=== PATIENT | female | born 1985 | race African-American/Black ===

== ENCOUNTER 2024-05-10 11:03 | Emergency (ER) | payer BC ==
[~2024-05-10] VITALS: Ht 160 cm; Wt 199.6 kg
[2024-05-10 11:11] VITALS: PULSE 86; RESP 20; TEMP 97.6; O2SAT 99
[2024-05-10] MEDS: SODIUM CHLORIDE 0.9% 1000ML 1,000 ML IV ONE (11:40)
[2024-05-10 11:43] LABS: BASOPHILS % 0.2 % (0.0-1.0); EOSINOPHILS # (AUTO) 0.1 (0.0-0.4); EOSINOPHILS % 1.1 % (0.0-6.0); HEMATOCRIT 40.4 % (34.2-44.1); HEMOGLOBIN 12.4 g/dL (12.0-16.0); LYMPHOCYTES # (AUTO) 2.8 (1.0-3.2); LYMPHOCYTES % 50.4 % (18.0-39.1); MEAN CORPUSCULAR HEMOGLOBIN 25.5 pg (28-32); MEAN CORPUSCULAR HGB CONC 30.7 g/dL (31-35); MONOCYTES # (AUTO) 0.4 (0.2-0.8); MONOCYTES % 6.6 % (4.4-11.3); NEUTROPHILS # (AUTO) 2.3 (2.1-6.9); NEUTROPHILS % 41.3 % (38.7-80.0); PLATELET COUNT 281 x10e3/uL (140-360); RED BLOOD COUNT 4.87 x10e6/uL (3.6-5.1); RED CELL DISTRIBUTION WIDTH 15.6 % (11.7-14.4); WHITE BLOOD COUNT 5.58 x10e3/uL (4.8-10.8)
[2024-05-10 11:57] LABS: ANION GAP 15.1 mmol/L (8-16); CALCIUM 8.8 mg/dL (8.4-10.2); CREATININE, SERUM 0.73 mg/dL (0.57-1.11); POTASSIUM 5.1 mmol/L (3.5-5.1)
[2024-05-10] MEDS: KETOROLAC TROMETHAMINE 30 MG/ML VIAL IV STA (12:03)
[2024-05-10] MEDS ORDERED: KETOROLAC TROME10 MG PO (12:28)
== END 2024-05-10 12:37 | disposition home or self-care (01) ==
LOC: ER 11:11
DX: E86.0 Dehydration (principal); S80.211A Abrasion, right knee, initial encounter; R51.9 Headache, unspecified; I10 Essential (primary) hypertension; E11.9 Type 2 diabetes mellitus without complications; W19.XXXA Unspecified fall, initial encounter; Z88.8 Allergy status to other drugs, medicaments and biological substances
CPT/HCPCS: 36415; 73560; 80048; 81025; 85025; 99283; J1885; J7030

== ENCOUNTER 2025-03-09 18:45 | Emergency (ER) | payer OTHER ==
[~2025-03-09] VITALS: Ht 160 cm; Wt 200.5 kg
[~2025-03-09 18:45] MED LIST: KETOROLAC TROME10 MG PO
[2025-03-09 19:05] VITALS: PULSE 95; RESP 20; TEMP 97.5
[2025-03-09] MEDS ORDERED: LOSARTAN POTASS25 MG PO (19:10)
[2025-03-09] MEDS ORDERED: TYLENOL325 MG PO (19:10)
[2025-03-09] MEDS: KETOROLAC TROMETHAMINE 30 MG/ML VIAL IV ONE (19:54)
[2025-03-09] MEDS: ONDANSETRON HCL INJ 2MG/ML 2ML 2 MG/ML VIAL IV ONE (19:54)
[2025-03-09] MEDS: ACETAMINOPHEN 325 MG TAB PO ONE (19:55)
[2025-03-09] MEDS: CLONIDINE HCL 0.1 MG TAB PO ONE (19:56)
[2025-03-09] MEDS ORDERED: AMLODIPINE BESYL5 MG PO (20:13)
[2025-03-09 20:20] VITALS: BP 161/91; O2SAT 98
== END 2025-03-09 20:22 | disposition home or self-care (01) ==
LOC: FSED 18:53
DX: R51.9 Headache, unspecified (principal); I10 Essential (primary) hypertension; E11.65 Type 2 diabetes mellitus with hyperglycemia
CPT/HCPCS: 70450; 80053; 81003; 81025; 85025; 99284; J1885; J2405

== ENCOUNTER 2025-06-26 02:19 | Emergency (ER) | payer SELFPAY ==
[~2025-06-26] VITALS: Ht 160 cm; Wt 198.7 kg
[2025-06-26 02:19] VITALS: TEMP 98.7
[~2025-06-26 02:19] MED LIST changes: +AMLODIPINE BESYL5 MG PO; +LOSARTAN POTASS25 MG PO; +TYLENOL325 MG PO
[2025-06-26] MEDS ORDERED: SODIUM CHLORIDE FLUSH 10 ML SYR IV PRN (02:30)
[2025-06-26 02:57] LABS: BASOPHILS % 0.5 % (0.0-1.0); EOSINOPHILS % 1.9 % (0.0-6.0); LYMPHOCYTES % 53.4 % (18.0-39.1); MONOCYTES % 7.3 % (4.4-11.3); NEUTROPHILS % 36.5 % (38.7-80.0); RED CELL DISTRIBUTION WIDTH 15.2 % (11.7-14.4)
[2025-06-26 03:39] LABS: EST GLOMERULAR FILTRATION RATE 102 ML/MIN (>=60)
[2025-06-26] MEDS: KETOROLAC TROMETHAMINE 30 MG/ML VIAL IV STA (03:46)
[2025-06-26 06:30] VITALS: PULSE 70; RESP 20
[2025-06-26 06:37] VITALS: BP 140/78; O2SAT 99
== END 2025-06-26 06:31 | disposition home or self-care (01) ==
LOC: ER 02:24
DX: R07.89 Other chest pain (principal); S80.01XA Contusion of right knee, initial encounter; W18.39XA Other fall on same level, initial encounter; Y92.89 Other specified places as the place of occurrence of the external cause; I10 Essential (primary) hypertension; E11.9 Type 2 diabetes mellitus without complications; J45.909 Unspecified asthma, uncomplicated; F41.9 Anxiety disorder, unspecified; E66.9 Obesity, unspecified
CPT/HCPCS: 36415; 71045; 73562; 80053; 83880; 84484; 84702; 85025; 93005; 94760; 99284; J1885